=== PATIENT | female | born 1965 | race African-American/Black ===

== ENCOUNTER 2019-09-17 13:38 | Emergency (ER) | payer MEDICARE, OTHER ==
[~2019-09-17] VITALS: Ht 165.1 cm; Wt 75.7 kg
[~2019-09-17 13:38] MED LIST: ASTELIN137 MCG; AUGMENTIN 875-1 EACH PO; CRESTOR5 MG PO; LEXAPRO20 MG PO; LORAZEPAM1 MG PO; NASONEX17 GM
--- OUTSIDE RECORDS SUMMARY | 2019-09-17 13:42 | XMS REPORT ---
[facility] Address Unknown Phone Unavailable Care Team Providers Care Assistant To The Ceo Name Role Phone Unavailable Unavailable Payers Payer Name Policy Type Policy Number Effective Date Expiration Date Problems This patient has no known problems. Allergies, Adverse Reactions, Alerts Allergy Name Allergy Type Status Severity Reaction(s) Onset Date Inactive Date Treating Clinician Comments lisbet Saleh 2017-03-16 00:00:00 Medications This patient has no known medications. Encounters Start Date/Time End Date/Time Encounter Type Admission Type Attending Clinicians Care Facility Care Department Encounter ID 2019-06-20 08:48:00 2019-06-20 08:48:00 Emergency [id number] 2018-11-29 10:08:00 2018-11-29 10:08:00 Emergency E [id number]
[2019-09-17] MEDS ORDERED: SODIUM CHLORIDE 0.9% 1000ML 1,000 ML IV SCH (14:26)
[2019-09-17] MEDS ORDERED: SODIUM CHLORIDE FLUSH 10 ML SYR INJ PRN (14:30)
[2019-09-17] MEDS ORDERED: CEFTRIAXONE SOD 1 GM VIAL IV ONE (14:30)
[2019-09-17] MEDS: ALBUTEROL SULF 0.083% NEB SOLN 3 ML NEB NEB STA (14:43)
[2019-09-17] MEDS: IPRATROPIUM BROMIDE 0.02% 2.5 ML NEB NEB STA (14:43)
--- NOTE | 2019-09-17 14:54 | Diagnostic Imaging Report ---
EXAMINATION: CHEST SINGLE (PORTABLE) INDICATION: Shortness of breath. COMPARISON: None FINDINGS: TUBES and LINES: None. LUNGS: Lungs are well inflated. There are bibasilar atelectasis. There is no evidence of pneumonia or pulmonary edema. PLEURA: No pleural effusion or pneumothorax. HEART AND MEDIASTINUM: The cardiomediastinal silhouette is unremarkable. BONES AND SOFT TISSUES: Status post RIF of the left clavicle with plate and screw construct. UPPER ABDOMEN: No free air under the diaphragm. IMPRESSION: No acute thoracic abnormality. Signed by: Dr. Sarah Mcelroy M.D. on 09/17/2019 2:52 PM
[2019-09-17 14:56] LABS: BASOPHILS # (AUTO) 0.1 (0.0-0.1); BASOPHILS % 0.4 % (0.0-1.0); EOSINOPHILS # (AUTO) 0.1 (0.0-0.4); EOSINOPHILS % 0.5 % (0.0-6.0); HEMATOCRIT 39.8 % (34.2-44.1); HEMOGLOBIN 12.9 g/dL (12.0-16.0); LYMPHOCYTES # (AUTO) 0.9 (1.0-3.2); MEAN CORPUSCULAR HEMOGLOBIN 27.9 pg (28-32); MEAN CORPUSCULAR HGB CONC 32.4 g/dL (31-35); MONOCYTES # (AUTO) 0.8 (0.2-0.8); MONOCYTES % 7.2 % (4.4-11.3); NEUTROPHILS # (AUTO) 9.3 (2.1-6.9); NEUTROPHILS % 83.6 % (38.7-80.0); PLATELET COUNT 234 x10e3/uL (140-360); RED BLOOD COUNT 4.63 x10e6/uL (3.6-5.1)
[2019-09-17] MEDS: CEFTRIAXONE SOD 2 GM/NS 100 ML 100 ML IV ONE (15:11)
[2019-09-17] MEDS: SODIUM CHLORIDE 0.9% 1000ML 1,000 ML IV STA (15:11)
[2019-09-17] MEDS: ACETAMINOPHEN 325 MG TAB PO STA (15:11)
[2019-09-17 15:14] LABS: ALANINE AMINOTRANSFERASE 11 IU/L (0-55); ALBUMIN 3.8 g/dL (3.5-5.0); ALBUMIN/GLOBULIN RATIO 0.9 (0.8-2.0); ALKALINE PHOSPHATASE 104 IU/L (40-150); ANION GAP 13.5 mmol/L (8-16); BLOOD UREA NITROGEN 9 mg/dL (7-26); BUN/CREATININE RATIO 9 (6-25); CALCIUM 9.4 mg/dL (8.4-10.2); CARBON DIOXIDE 24 mmol/L (22-29); CHLORIDE 105 mmol/L (98-107); CREATINE KINASE 73 IU/L (29-168); CREATININE, SERUM 1.05 mg/dL (0.57-1.11); EST GLOMERULAR FILTRATION RATE > 60 ML/MIN (60-); GLUCOSE 91 mg/dL (74-118); POTASSIUM 3.5 mmol/L (3.5-5.1); SODIUM 139 mmol/L (136-145)
[2019-09-17 16:52] LABS: CLARITY,URINE CLEAR (CLEAR); COLOR,URINE YELLOW (YELLOW)
[2019-09-17 16:53] LABS: BACTERIA,URINE MODERATE /HPF; BILIRUBIN,URINE NEGATIVE (NEGATIVE); EPITHELIAL CELLS,URINE MANY /LPF; KETONES,URINE NEGATIVE (NEGATIVE); LEUKOCYTE ESTERASE ,URINE NEGATIVE (NEGATIVE); NITRITE,URINE NEGATIVE (NEGATIVE); PROTEIN,URINE DIPSTICK NEGATIVE (NEGATIVE); RBC,URINE 0-5 /HPF (0-5); URINE UROBILINOGEN 0.2 mg/dL (0.2 - 1); WBC,URINE (MAN) 0-5 /HPF (0-5)
== END 2019-09-17 17:40 | disposition home or self-care (01) ==
LOC: ER 13:38
DX: R50.9 Fever, unspecified (principal); R06.09 Other forms of dyspnea; R05 Cough; J20.9 Acute bronchitis, unspecified; J02.9 Acute pharyngitis, unspecified; J06.9 Acute upper respiratory infection, unspecified
CPT/HCPCS: 36415; 71045; 80053; 81001; 82550; 82553; 83880; 84484; 85025; 85379; 87400; 93005; 94640; 94664; 99284; J0696; J7030

== ENCOUNTER 2019-10-03 15:43 | Emergency (ER) | payer MEDICARE, OTHER ==
[~2019-10-03] VITALS: Ht 165.1 cm; Wt 78.9 kg
[2019-10-03] MEDS ORDERED: ASPIRIN 325 MG TAB ONE (16:00)
[2019-10-03] MEDS ORDERED: NITROGLYCERIN 0.4 MG SUBL ONE ×2 (16:00→16:13)
[2019-10-03] MEDS ORDERED: NITROGLYCERIN 0.4 MG SUBL SL ONE ×2 (16:30)
[2019-10-03] MEDS ORDERED: ASPIRIN 325 MG TAB PO ONE (16:30)
--- NOTE | 2019-10-03 16:40 | Diagnostic Imaging Report ---
EXAMINATION: CXR 2 VIEW - HOPD INDICATION: Chest pain COMPARISON: Chest radiograph 09/17/2019 FINDINGS: LINES/TUBES:EKG leads in place. LUNGS:The lungs are well-inflated. No focal consolidation or pulmonary edema. PLEURA:No pleural effusion or pneumothorax. MEDIASTINUM:The cardiomediastinal silhouette appears normal in size and shape. BONES/SOFT TISSUES:No acute osseous injury. Stable postoperative findings of left clavicle ORIF. ABDOMEN:No free air under the diaphragm. IMPRESSION: No focal pneumonia or pulmonary edema. Signed by: Dyan Bagley MD on 10/03/2019 4:37 PM
[2019-10-03] MEDS ORDERED: KETOROLAC TROMETHAMINE 30 MG/ML VIAL IV STA (17:20)
[2019-10-03] MEDS ORDERED: POTASSIUM CHLORIDE 20 MEQ TAB CR PO STA (17:21)
[2019-10-03] MEDS ORDERED: POTASSIUM CHLORIDE 20 MEQ TAB CR PO ONE (17:32)
[2019-10-03] MEDS ORDERED: KETOROLAC TROMETHAMINE 30 MG/ML VIAL ONE (17:33)
[2019-10-03] MEDS ORDERED: SODIUM CHLORIDE 0.9% 50ML 50 ML ONE (17:38)
[2019-10-03] MEDS ORDERED: IOPAMIDOL 370 MG/ML 200 ML INFUS..BTL INJ ONE (17:39)
--- NOTE | 2019-10-03 18:06 | NUR ---
PT TALKING ON PHONE AND LAUGHING, PT STATED PAIN IS 7/10, VITAL SIGNS STABLE
--- NOTE | 2019-10-03 18:20 | NUR ---
REPORT TO CARLOS HUERTA
--- NOTE | 2019-10-03 18:40 | Diagnostic Imaging Report ---
EXAM: CT Abdomen and Pelvis WITH contrast INDICATION: elevated amylase COMPARISON: None. TECHNIQUE: Abdomen and pelvis were scanned utilizing a multidetector helical scanner from the lung base to the pubic symphysis after administration of IV contrast. Coronal and sagittal reformations were obtained. Dose modulation, iterative reconstruction, and/or weight based adjustment of the mA/kV was utilized to reduce the radiation dose to as low as reasonably achievable. Routine protocol was performed. Scan was performed when during portal venous phase. IV CONTRAST: 150 mL of Omnipaque 300 ORAL CONTRAST: Water COMPLICATIONS: None RADIATION DOSE: Total DLP: 681.43 mGy-cm Estimated effective dose: (DLP x 0.015 x size factor) mSv CTDIvol has been reviewed. It is below the limits set by the Radiation Protocol Committee (RPC). FINDINGS: LINES and TUBES: None. LOWER THORAX: There is bibasilar atelectasis. HEPATOBILIARY: 1.1 cm focus of hyperenhancement within the hepatic segment 6 (series 2, image 28) is incompletely characterized on this single phase exam.. No biliary ductal dilation. GALLBLADDER: No radio-opaque stones or sludge. No wall thickening. SPLEEN: No splenomegaly. PANCREAS: No focal masses or ductal dilatation. ADRENALS: No adrenal nodules KIDNEYS/URETERS: Kidneys enhance symmetrically. No hydronephrosis. No cystic or solid mass lesions. No stones. GI TRACT: No abnormal distention, or evidence of bowel obstruction. Mild wall thickening of few loops of jejunum, proximal transverse colon and sigmoid colon likely infectious or inflammatory. Appendix is normal. PELVIC ORGANS/BLADDER: Unremarkable. LYMPH NODES: No lymphadenopathy. VESSELS: Unremarkable. PERITONEUM / RETROPERITONEUM: No free air or fluid. BONES: There are degenerative changes in the lumbar spine. SOFT TISSUES: Unremarkable. IMPRESSION: 1. Mild wall thickening of few loops of jejunum, proximal transverse colon and sigmoid colon likely infectious or inflammatory. 2. A 1.1 cm focus of hyperenhancement within the hepatic segment 6 is incompletely characterized on this single phase exam and is indeterminate. Signed by: Edilberto Antunez MD on 10/03/2019 6:37 PM
[2019-10-03] MEDS ORDERED: ONDANSETRON HCL INJ 2MG/ML 2ML 2 MG/ML VIAL IV STA ×2 (18:53→20:26)
[2019-10-03] MEDS ORDERED: MORPHINE SULFATE 2 MG/ML SYR 1ML IV STA (18:53)
[2019-10-03] MEDS ORDERED: MORPHINE SULFATE INJ 4 MG/ML INJ 1ML ONE (19:00)
[2019-10-03] MEDS ORDERED: MORPHINE SULFATE INJ 4 MG/ML INJ 1ML IV STA (19:13)
[2019-10-03] MEDS ORDERED: NITROGLYCERIN 2% OINT 1 GM PKT TOP ONE (19:30)
[2019-10-03] MEDS ORDERED: PROMETHAZINE HCL (IM) 25 MG/ML VIAL ONE (19:48)
[2019-10-03] MEDS ORDERED: SODIUM CHLORIDE 0.9% 500ML 500 ML ONE (19:48)
== END 2019-10-03 21:50 | disposition other institution (70) ==
LOC: FSED 15:43
DX: R07.89 Other chest pain (principal); K85.00 Idiopathic acute pancreatitis without necrosis or infection; R11.2 Nausea with vomiting, unspecified; E87.6 Hypokalemia; K52.9 Noninfective gastroenteritis and colitis, unspecified; M32.9 Systemic lupus erythematosus, unspecified; I10 Essential (primary) hypertension; F41.9 Anxiety disorder, unspecified; M06.9 Rheumatoid arthritis, unspecified
CPT/HCPCS: 71046; 74177; 80048; 80076; 81003; 82553; 84484; 85025; 85379; 99284; J1885; J2270; J2405; J2550; J7040; Q9967